=== PATIENT | female | born 1985 | race African-American/Black ===

== ENCOUNTER 2016-08-26 13:20 | Emergency (ER) | payer BC ==
[~2016-08-26] VITALS: Ht 170.2 cm; Wt 77.0 kg
[2016-08-26 13:22] VITALS: BP 134/90; PULSE 113; RESP 18; TEMP 97.7; O2SAT 96
--- NOTE | 2016-08-26 13:44 | PD ---
Physical Exam Time Seen by Provider: 13:42 Narrative 30yo F w c/o bloody stool since Tuesday. Has crohns disease and was told to come to ER by GI doctor. Here on vacation. Reports abd pain since Tuesday. Reports lightheadedness. Patient stable. Patient seen in triage. Awaiting bed placement. Data Data Last Documented VS Vital Signs Date Time Temp Pulse Resp B/P Pulse Ox O2 Delivery O2 Flow Rate FiO2 08/26/16 13:22 97.7 113 18 134/90 96 MDM Supervised Visit with MIGUEL: Johana Vanessa Aug 26, 2016 13:44
[2016-08-26] MEDS ORDERED: IMUR50TA PO (15:37)
[2016-08-26] MEDS ORDERED: PRED20 PO (15:37)
[2016-08-26] MEDS ORDERED: INFL100P IV (15:39)
[2016-08-26] MEDS ORDERED: SODIUM CHLOR 0.9% 1000 ML INJ 1,000 ML IV SCH (15:56)
[2016-08-26] MEDS ORDERED: ONDANSETRON HCL 4 MG/2 ML VIAL IVP ONE (16:00)
[2016-08-26] MEDS ORDERED: MORPHINE SULFATE 4 MG/ML INJ IV PUSH ONE (16:00)
[2016-08-26 16:10] VITALS: RESP 16; O2SAT 100
[2016-08-26 16:24] VITALS: BP 112/72; PULSE 98; RESP 16; TEMP 97.8; O2SAT 99
[2016-08-26 16:47] LABS: BLOOD, URINE NEG (NEG); CALCIUM OXALATE CRYSTALS,URINE OCC /hpf; COMMENT (UR) CULT NOT INDICATED; CULTURE IF INDICATED CULT NOT INDICATED; GLUCOSE,URINE NEG (NEG); KETONE, URINE NEG (NEG); MUCUS URINE FEW /lpf (OCC); NITRITE,URINE NEG (NEG); SQUAMOUS EPITHELIAL CELL URINE 2 /hpf (0-5); URINE COLOR YELLOW (YELLW/STRAW)
[2016-08-26 16:52] LABS: APTT (PATIENT) 25.7 SEC (24.3-30.1); AUTOMATED NEUTROPHIL # 6.4 TH/MM3 (1.8-7.7); BASOPHIL # 0.1 TH/MM3 (0-0.2); BASOPHIL % 0.8 % (0.0-2.0); EOSINOPHIL # 0.3 TH/MM3 (0-0.4); EOSINOPHIL % 2.6 % (0.0-4.0); HEMATOCRIT 41.2 % (35.0-46.0); HEMO FLAGS DIFF FINAL; LYMPH % 38.7 % (9.0-44.0); LYMPHOCYTE # 4.7 TH/MM3 (1.0-4.8); MEAN CELL VOLUME 80.8 FL (80.0-100.0); MEAN CORPUSCULAR HEMOGLOBIN 25.8 PG (27.0-34.0); MONO % 4.8 % (0.0-8.0); NEUT % 53.1 % (16.0-70.0); PLATELET COUNT 356 TH/MM3 (150-450); PROTHROMBIN TIME - PATIENT 10.8 SEC (9.8-11.6); RED CELL DISTRIBUTION WIDTH 15.3 % (11.6-17.2); WHITE BLOOD COUNT 12.1 TH/MM3 (4.0-11.0)
[2016-08-26 17:18] LABS: ANION GAP 8 MEQ/L (5-15); AST (GOT) 12 U/L (15-37); BICARBONATE 27.8 MEQ/L (21.0-32.0); BLOOD UREA NITROGEN 7 MG/DL (7-18); CHLORIDE 105 MEQ/L (98-107); GLOMERULAR FILTRATION RATE 99 ML/MIN (>89); POTASSIUM 3.3 MEQ/L (3.5-5.1); SODIUM (NA) 141 MEQ/L (136-145)
[2016-08-26 17:21] LABS: ALKALINE PHOSPHATASE 67 U/L (45-117); ALT (GPT) 22 U/L (10-53); TOTAL BILIRUBIN ADULT 0.4 MG/DL (0.2-1.0)
[2016-08-26] MEDS ORDERED: IOHEXOL 350 MG/ML 10 ML VIAL (for RAD DIAG) IV ONE (17:50)
--- NOTE | 2016-08-26 18:27 | RADRPT ---
EXAM DATE/TIME: 08/26/2016 17:47 [facility] COMPARISON: No previous studies available for comparison. INDICATIONS : Blood in stool since Tuesday IV CONTRAST: 96 cc Omnipaque 350 (iohexol) IV ORAL CONTRAST: No oral contrast ingested. RADIATION DOSE: 8.37 CTDIvol (mGy) MEDICAL HISTORY : Crohn's disease. SURGICAL HISTORY : None. ENCOUNTER: Initial ACUITY: 4 - 6 days PAIN SCALE: 6/10 LOCATION: Abdomen TECHNIQUE: Volumetric scanning of the abdomen and pelvis was performed. Using automated exposure control and ad justment of the mA and/or kV according to patient size, radiation dose was kept as low as reasonably achievable to obtain optimal diagnostic quality images. FINDINGS: CT Abdomen: The liver, spleen, pancreas, kidneys, adrenals are unremarkable. There is no evidence for any appreciable pathological adenopathy, free fluid, or bowel obstruction. CT pelvis: There is no evidence for mass, abscess formation, or any significant adenopathy within the pelvis. There is a partially collapsed cyst in the right ovary measuring 1.7 cm in size with slight fluid in the cul-de-sac. The appendix is not clearly visualized, however no definite signs of appendi citis is seen. CONCLUSION: Partially collapsed cyst in the right ovary measuring 1.7 cm in size with slight flui d in the cul-de-sac. Mt Gore MD on August 26, 2016 at 18:20 Board Certified Radiologist. This report was verified electronically.
[2016-08-26] MEDS ORDERED: TRAM50TA PO (18:34)
[2016-08-26] MEDS ORDERED: CIPR-9 PO (18:34)
--- NOTE | 2016-08-26 18:44 | PD ---
HPI Chief Complaint: GI Complaint Time Seen by Provider: 18:35 Travel History International Travel<30 days: No Contact w/Intl Traveler<30days: No Traveled to known affect area: No History of Present Illness HPI 30-year-old female that presents to the ED for evaluation of GI bleed with history of Crohn's disease. Patient states that she's had 2 bouts of blood coming from her stool. Per patient she has no bleeding otherwise. She states that she has some abdominal cramping when she has to stools. She's had abdominal discomfort which is normal for her Crohn's disease which she states that she usually sees some blood when she wipes but she's never really had an episode where she had blood on her stool. She does show me pictures do show some blood. She denies any fevers chills or sweats. No chest pain or shortness of breath. Nausea or vomiting. The patient her pain is 4 out of 10 and is crampy. Nothing makes it better or worse. She states compliance with her medications including prednisone which she also takes for lupus. She is from out of town and she is here visiting. She is going home next week. Per patient she has no GI doctor in the area. She has not contacted anybody about this. She denies eating anything new. She is very concerned because she's never had bleeding like this before. PFSH Past Medical History Diminished Hearing: No Gastrointestinal Disorders: Yes (CHRONS DISEASE) Tetanus Vaccination: < 5 Years Influenza Vaccination: Yes ?: Not LMP: 08/07/16 Social History Alcohol Use: No Tobacco Use: No Substance Use: No Allergies-Medications (Allergen,Severity, Reaction): Coded Allergies: No Known Allergies (Unverified , 08/26/16) Reported Meds & Prescriptions Reported Meds & Active Scripts Active Reported Remicade Inj (Infliximab) 100 Mg Inj 500 Mg IV MONTHLY Imuran (Azathioprine) 50 Mg Tab 50 Mg PO DAILY Hazardous agent: use appropriate precautions for handling and disposal. Prednisone 20 Mg Tab 30 Mg PO DAILY Review of Systems Except as stated in HPI: all other systems reviewed are Neg Physical Exam Narrative GENERAL: SKIN: Warm and dry. HEAD: Atraumatic. Normocephalic. EYES: Pupils equal and round. No scleral icterus. No injection or drainage. ENT: No nasal bleeding or discharge. Mucous membranes pink and moist. Tongue is midline. No uvula deviation. NECK: Trachea midline. No JVD. CARDIOVASCULAR: Regular rate and rhythm. No murmurs, S3, S4. RESPIRATORY: No accessory muscle use. Clear to auscultation. Breath sounds equal bilaterally. GASTROINTESTINAL: Abdomen soft, non-tender, nondistended. Hepatic and splenic margins not palpable. Rectal exam: Done with female nurse present. Patient has some stool but no sign of acute hemorrhoid. Hemoccult was done and was positive. MUSCULOSKELETAL: Extremities without clubbing, cyanosis, or edema. No obvious deformities. Full range of motion of the upper and lower extremities bilaterally. 2+ pulses bilaterally. NEUROLOGICAL: Awake and alert. No obvious cranial nerve deficits. Motor grossly within normal limits. Five out of 5 muscle strength in the arms and legs. Normal speech. PSYCHIATRIC: Appropriate mood and affect; insight and judgment normal. Data Data Last Documented VS Vital Signs Date Time Temp Pulse Resp B/P Pulse Ox O2 Delivery O2 Flow Rate FiO2 08/26/16 16:24 97.8 98 16 112/72 99 Room Air Orders Complete Blood Count With Diff (08/26/16 15:56) Comprehensive Metabolic Panel (08/26/16 15:56) Lipase (08/26/16 15:56) Prothrombin Time / Inr (Pt) (08/26/16 15:56) Act Partial Throm Time (Ptt) (08/26/16 15:56) Urinalysis - C+S If Indicated (08/26/16 15:56) Ct Abd/Pel W Iv Contrast(Rout) (08/26/16 15:56) Iv Access Insert/Monitor (08/26/16 15:56) Ecg Monitoring (08/26/16 15:56) Oximetry (08/26/16 15:56) Morphine Inj (Morphine Inj) (08/26/16 16:00) Ondansetron Inj (Zofran Inj) (08/26/16 16:00) Sodium Chlor 0.9% 1000 Ml Inj (Ns 1000 M (08/26/16 15:56) Ed Urine Pregnancytest Poc (08/26/16 16:11) Iohexol 350 Inj (Omnipaque 350 Inj) (08/26/16 17:50) Labs Laboratory Tests Test 08/26/16 08/26/16 16:10 16:30 White Blood Count 12.1 TH/MM3 Red Blood Count 5.10 MIL/MM3 Hemoglobin 13.2 GM/DL Hematocrit 41.2 % Mean Corpuscular Volume 80.8 FL Mean Corpuscular Hemoglobin 25.8 PG Mean Corpuscular Hemoglobin 32.0 % Concent Red Cell Distribution Width 15.3 % Platelet Count 356 TH/MM3 Mean Platelet Volume 7.7 FL Neutrophils (%) (Auto) 53.1 % Lymphocytes (%) (Auto) 38.7 % Monocytes (%) (Auto) 4.8 % Eosinophils (%) (Auto) 2.6 % Basophils (%) (Auto) 0.8 % Neutrophils # (Auto) 6.4 TH/MM3 Lymphocytes # (Auto) 4.7 TH/MM3 Monocytes # (Auto) 0.6 TH/MM3 Eosinophils # (Auto) 0.3 TH/MM3 Basophils # (Auto) 0.1 TH/MM3 CBC Comment DIFF FINAL Differential Comment Prothrombin Time 10.8 SEC Prothromb Time International 1.0 RATIO Ratio Activated Partial 25.7 SEC Thromboplast Time Sodium Level 141 MEQ/L Potassium Level 3.3 MEQ/L Chloride Level 105 MEQ/L Carbon Dioxide Level 27.8 MEQ/L Anion Gap 8 MEQ/L Blood Urea Nitrogen 7 MG/DL Creatinine 0.69 MG/DL Estimat Glomerular Filtration 99 ML/MIN Rate Random Glucose 76 MG/DL Calcium Level 9.2 MG/DL Total Bilirubin 0.4 MG/DL Aspartate Amino Transf 12 U/L (AST/SGOT) Alanine Aminotransferase 22 U/L (ALT/SGPT) Alkaline Phosphatase 67 U/L Total Protein 7.9 GM/DL Albumin 4.1 GM/DL Lipase 192 U/L Urine Color YELLOW Urine Turbidity CLEAR Urine pH 6.0 Urine Specific [place] 1.015 Urine Protein TRACE mg/dL Urine Glucose (UA) NEG mg/dL Urine Ketones NEG mg/dL Urine Occult Blood NEG Urine Nitrite NEG Urine Bilirubin NEG Urine Urobilinogen LESS THAN 2.0 MG/DL Urine Leukocyte Esterase NEG Urine RBC LESS THAN 1 /hpf Urine WBC 1 /hpf Urine Squamous Epithelial 2 /hpf Cells Urine Calcium Oxalate Crystals OCC /hpf Urine Mucus FEW /lpf Microscopic Urinalysis Comment CULT NOT INDICATED MDM Medical Decision Making Medical Screen Exam Complete: Yes Emergency Medical Condition: Yes Medical Record Reviewed: Yes Interpretation(s) CBC & BMP Diagram 08/26/16 16:10 LFTs and lipase within normal limits. UA negative. Coags within normal limits. Last Impressions Abdomen/Pelvis CT 08/26/16 1556 Signed Impressions: Service Date/Time: August 17:47 - CONCLUSION: Partially collapsed cyst in the right ovary measuring 1.7 cm in size with slight fluid in the cul-de-sac. Mt Gore MD Differential Diagnosis GI bleed versus Crohn's flareup versus bloody diarrhea versus colitis versus gastroenteritis Narrative Course 30-year-old female that presents to the ED for evaluation of possible bloody diarrhea. Patient was properly examined and was found to have signs and symptoms consistent with appears to be bleeding. Patient has a history of Crohn 's. Labs and imaging were ordered. Patient was given IV pain medications and fluids. Patient was released assess and feels improved. Labs and imaging did not show any sign of acute disease. Slightly elevated well as a count as well as ovarian cyst but otherwise unremarkable. Patient was told results. At this time this could be related to gastroenteritis. We'll treat with pain control and follow-up with GI. Patient given cipro to use to cover for infectious etiology. She understands reasons to come back. See ED if worst. Case was discussed with my attending Dr. Abdi who was made aware of all findings and agrees with plan and discharge with pain control. Diagnosis Primary Impression: Bloody diarrhea Additional Impressions: Abdominal pain Qualified Code: R10.30 - Lower abdominal pain Ovarian cyst Qualified Code: N83.201 - Cyst of right ovary Patient Instructions: General Instructions, Narcotic given in the ED Additional Instructions: Take medications as prescribed. Follow-up with PCP. See ED for any worsening symptoms. Do not drink or drive while taking pain medication. Apply ice or heat as needed for pain Drink plenty of fluids. Follow with GI doctor when you get back home. Your CT of the abdomen did show what appears to be a cyst that has collapsed on the right side. Follow-up with [facility] if this becomes problematic. Med/Other Pt SpecificInfo: Prescription(s) given Scripts Ciprofloxacin (Cipro)500 Mg [id number] Mg PO BID 10 Days Prov:Naye Abdi DO 08/26/16 Tramadol 50 Mg Tab50 Mg PO Q6H PRN (PAIN) #14 TAB Ref 0 Prov:Naye Abdi DO 4/20/17 Disposition: 01 DISCHARGE HOME Condition: Stable Shola,Anthony PA Aug 26, 2016 18:44
[2016-08-26 18:54] VITALS: BP 120/77; TEMP 97.8
== END 2016-08-26 18:58 | disposition home or self-care (01) ==
LOC: NEPC 13:20
DX: K92.1 Melena (principal); R19.7 Diarrhea, unspecified; R10.30 Lower abdominal pain, unspecified; K50.90 Crohn's disease, unspecified, without complications; N83.201 Unspecified ovarian cyst, right side
CPT/HCPCS: 74177; 80053; 81001; 83690; 84703; 85025; 85610; 85730; 96361; 96374; 96375; 99285; J2270; J2405; J7030; Q9967